=== PATIENT | male | born 1960 | race Caucasian/White ===

== ENCOUNTER 2018-08-11 03:37 | Inpatient (IN) | payer OTHER ==
[~2018-08-11] VITALS: Ht 182.9 cm; Wt 225.9 kg
--- NOTE | 2018-08-11 03:55 | NUR ---
BIB RA 39 FROM [facility], D/T C/O BILAT' TESTICULAR SWELLING/ PAIN 02/02 X 2 DAYS, DENIES ANY SOB, AOX4, VS STABLE, AFEBRILE AT THIS TIME, PLACED ON ER BED 15, DR REYNA AT BEDSIDE TO EVHUMA PT. AWAITING ORDERS.
--- NOTE | 2018-08-11 04:31 | NUR ---
US SCROTUM DONE AT BED SIDE, ASSISTANCE PROVIDED.
--- NOTE | 2018-08-11 04:35 | NUR ---
PT WITH HANNAH' ERICKA MINOO BANDGE DRESSINGS, OREDERED BY DR REYNA TO REMOVE , TO ASSESS WOUND, NEW KALEX WRAP APPLIED, MINOO BANDGE APPLIED.
[2018-08-11] MEDS ORDERED: ONDANSETRON 4 MG TAB.RAPDIS ONE (04:37)
[2018-08-11] MEDS ORDERED: oxyCODONE/APAP (5/325 MG) 1 UDTAB TABLET ONE (04:37)
[2018-08-11 04:53] LABS: BASOPHILS % (AUTO) 0.5 % (0.0-2.0); EOSINOPHILS % (AUTO) 2.2 % (0.0-6.0); HEMATOCRIT 38 % (39-51); HEMOGLOBIN 12.3 g/dL (13.5-17.5); LYMPHOCYTES % (AUTO) 16.1 % (20.0-44.0); MEAN CORPUSCULAR HGB CONC 32 g/dl (31.0-36.0); MEAN CORPUSCULAR VOLUME 89 fL (80-96); MONOCYTES # (AUTO) 0.6 /CMM (0.1-1.30); MONOCYTES % (AUTO) 9.7 % (2.0-12.0); NEUTROPHILS # (AUTO) 4.6 /CMM (1.8-8.9); NEUTROPHILS % (AUTO) 71.5 % (43.0-81.0); PLATELET COUNT (AUTO) 281 /CMM (150-450); RED BLOOD CELL COUNT(AUTO) 4.32 MIL/uL (4.5-6.0); WHITE BLOOD COUNT (AUTO) 6.5 K/uL (4.3-11.0)
[2018-08-11] MEDS ORDERED: oxyCODONE/APAP (5/325 MG) 1 UDTAB TABLET PO ONE (05:00)
[2018-08-11] MEDS ORDERED: ONDANSETRON 4 MG TAB.RAPDIS SL ONE (05:00)
[2018-08-11 05:03] LABS: CALCIUM, SERUM 8.4 mg/dL (8.5-10.1); POTASSIUM 4.6 mmol/L (3.5-5.1)
[2018-08-11 05:08] LABS: ALBUMIN 3.2 g/dL (3.4-5.0); BILIRUBIN,DIRECT 0.4 mg/dL (0.0-0.2); BILIRUBIN,TOTAL 1.5 mg/dL (0.2-1.0); TOTAL PROTEIN, SERUM 7.2 g/dL (6.4-8.2)
--- NOTE | 2018-08-11 05:45 | NUR ---
Dr. Quintero, Urologist paged.
--- NOTE | 2018-08-11 06:00 | NUR ---
[address]nd [address] Dr[address] Quintero paged.
--- NOTE | 2018-08-11 06:10 | NUR ---
Dr. Roca, urologist paged.
--- NOTE | 2018-08-11 06:14 | NUR ---
XR CHEST BEING DONE AT BED SIDE.
--- NOTE | 2018-08-11 06:15 | NUR ---
Dr. Roca, urologist on phone w/ Dr. Nguyen.
--- NOTE | 2018-08-11 06:19 | NUR ---
ADMIT MEDR 315-2 DX: EPIDIDYMITIS VS. TESTICULAR TORSION JADE DERAS
--- NOTE | 2018-08-11 06:20 | NUR ---
Awaiting authorization# for admission.
--- NOTE | 2018-08-11 06:27 | NUR ---
BRAEDEN WOODARD NP PAGED.
[2018-08-11] MEDS ORDERED: LEVOFLOXACIN 750 MG /D5W 150ML 150 ML IV ONE ×2 (06:30→06:42)
--- NOTE | 2018-08-11 06:58 | NUR ---
CALLED FOR REPORT, GIVEN TO CHARGE NURSE BOUBACAR, BED ASSIGNED 315-2, INSURANCE PENDING, AWAITING CLEARANCE TO ADMIT.
--- NOTE | 2018-08-11 07:23 | NUR ---
Faxed clinical info to [facility] .
--- NOTE | 2018-08-11 07:32 | NUR ---
ROBERTA RN GIVEN REPORT FOR DAWNA.
--- NOTE | 2018-08-11 07:43 | NUR ---
CALL FROM AMANDA WITH [place] INFO:ACCEPTED BY DR TREVINO,[phone], GOING TO [facility],TELE BED FOR CARDIOMYOPATHY,R/O TESTICULAR TORSION.
--- NOTE | 2018-08-11 07:45 | NUR ---
DR TREVINO CALLED AND SPOKE WITH DR SANCHEZ,RECOMMENDED TO KEEP PT HERE SINCE THEY HAVE NO UROLOGY. AMANDA/SERGIO BE CALLED
--- NOTE | 2018-08-11 07:57 | NUR ---
RECEIVED REPORT FROM RAPHAEL MUELLER FOR DAWNA. NOTED TESTICULAR SWELLING, PT IS AAOX4, NOT IN RESPIRATORY DISTRESS, V/S STABLE.
--- NOTE | 2018-08-11 08:01 | NUR ---
CALL BACK FROM MAANDA Lujan/ BLAIR INFO: GOING TO [facility] [address] [facility],[address],[place] [address],REPORT TO [phone], ARVIND LIM
--- NOTE | 2018-08-11 08:10 | NUR ---
REFUSED IN & OUT CATH,DR SANCHEZ AWARE
--- NOTE | 2018-08-11 08:23 | NUR ---
REFUSED TO GO TO [facility]. AND [facility] WHERE HE IS CAPITATED TO . AMANDA'S CONTACT INFO GIVEN REQUESTED BY PT.
--- NOTE | 2018-08-11 08:26 | NUR ---
PT STATES DOESNT WANT TO GET TRANSFER TO OTHER HOSPITAL, STORAGE BATTERY INSPECTOR AWARE.
--- NOTE | 2018-08-11 08:41 | NUR ---
DR. NINA UROLOGIST AT BEDSIDE FOR PT EVAL.
[2018-08-11] MEDS ORDERED: BLOO-668 IN (09:55)
[2018-08-11] MEDS ORDERED: FURO80TA85 PO (09:55)
[2018-08-11] MEDS ORDERED: INSU100V32 SQ (09:55)
[2018-08-11] MEDS ORDERED: RIVA10TA PO (09:55)
[2018-08-11] MEDS ORDERED: IBUP-1953 PO (09:55)
[2018-08-11] MEDS ORDERED: AMIN30LI2 PO (09:55)
[2018-08-11] MEDS ORDERED: SIMV20TA6 PO (09:55)
[2018-08-11] MEDS ORDERED: LACT10SO PO (09:55)
[2018-08-11] MEDS ORDERED: INSU100V27 SQ (09:55)
[2018-08-11] MEDS ORDERED: POTA20PA34 PO (09:55)
[2018-08-11] MEDS ORDERED: METO25TA20 PO (09:55)
[2018-08-11] MEDS ORDERED: ASPI-1169 PO (09:55)
[2018-08-11] MEDS ORDERED: DIGO250T PO (09:55)
[2018-08-11] MEDS ORDERED: ZINC220C8 PO (09:55)
[2018-08-11] MEDS ORDERED: ASCO500T9 PO (09:55)
[2018-08-11] MEDS ORDERED: LISI40TA4 PO (09:55)
--- NOTE | 2018-08-11 09:58 | NUR ---
URINE SPECIMEN COLLECTED AND SENT TO LAB.
[2018-08-11 10:05] LABS: APPEARANCE,URINE Clear (CLEAR); BILIRUBIN,URINE SMALL (NEGATIVE); BLOOD, URINE Negative Ery/uL (NEGATIVE); COLOR,URINE Yellow (YELLOW); KETONES,URINE Trace (NEGATIVE); LEUKOCYTE ESTERASE ,URINE Negative (NEGATIVE); NITRITE, URINE Negative (NEGATIVE); PROTEIN,URINE 100 mg/dl (NEGATIVE); UGLUCOSE Negative (NEGATIVE); UROBILINOGEN,URINE 0.2 EU/dL (0.2)
--- NOTE | 2018-08-11 10:11 | NUR ---
REPORT GIVEN TO RAPHAEL SAMUELS FOR DAWNA.
[2018-08-11 10:25] LABS: BACTERIA,URINE Rare /HPF (None Seen); RBC,URINE NONE SEEN /HPF (0-2); SQUAMOUS EPITHELIAL CELL,UR Few /HPF (None Seen); WBC,URINE NONE SEEN /HPF (0-3)
[2018-08-11] MEDS ORDERED: ONDANSETRON HCL/PF 4 MG/2 ML VIAL IVP PRN (11:00)
[2018-08-11] MEDS ORDERED: HYDROCODONE/APAP 5/325MG 1 EACH TABLET PO PRN (11:00)
[2018-08-11] MEDS ORDERED: Z GUARD REMEDY 2 OZ OINT TP PRN (11:00)
[2018-08-11] MEDS ORDERED: ACETAMINOPHEN 325 MG TABLET PO PRN (11:00)
[2018-08-11] MEDS ORDERED: IBUPROFEN 400 MG TABLET PO PRN (11:00)
[2018-08-11] MEDS ORDERED: ZOLPIDEM TARTRATE 5 MG TABLET PO PRN (11:00)
[2018-08-11] MEDS ORDERED: MAG HYDROX/AL HYDROX/SIMETH 30 ML UDC PO PRN (11:00)
[2018-08-11] MEDS ORDERED: MAGNESIUM HYDROXIDE 30 ML UDC PO PRN (11:00)
[2018-08-11] MEDS ORDERED: FUROSEMIDE 40 MG/4 ML VIAL IV SCH (11:00)
[2018-08-11] MEDS ORDERED: MULT1TAB73 PO (11:33)
[2018-08-11] MEDS: BLOOD SUGAR DIAGNOSTIC 1 EACH STRIP IN SCH ×4 (11:38→21:20)
[2018-08-11] MEDS: FUROSEMIDE 100 MG/10 ML VIAL IV SCH ×2 (11:43→17:34)
[2018-08-11] MEDS: POTASSIUM CHLORIDE 20 MEQ POWDER PACKET PO SCH (11:43)
--- NOTE | 2018-08-11 12:03 | NUR ---
MS RN ADMITTING NOTES ADMITTED PT TO UNIT VIA GURNEY ACCOMPANIED BY Andrea NURSE ROBERTA RICCI AT 1045. A/ O X 4. ABLE TO MAKE NEEDS KNOWN. PT WITH DIAGNOSIS OF EPIDIDYMITIS WITH SCROTAL SWELLING. PT ORIENTED TO UNIT AND ROOM. V/S TAKEN AND RECORDED. ON ROOM AIR TOLERATING WELL WITH NO SOB NOTED. BODY ASSESSMENT DONE. ABDOMEN SOFT AND NON-TENDER AND NON DISTENDED WITH POSITIVE BOWEL SOUNDS. LUNGS CLEAR BILATERALLY ON AUSCULTATION. PHOTOS OF SKIN CONDITION TAKEN AND FILED ON CHART. PT WITH HEPLOCK ON RAC G#20 INTACT AND PATENT. SAFET MEASURES INITIATED. BED PLACED ON LOW LOCKED POSITION WITH SIDE-RAILS UP X2. CALL LIGHT WITHIN EASY REACH OF PT. WILL CONTINUE TO MONITOR AND ASSESS PT.
[2018-08-11] MEDS: DIGOXIN 0.25 MG TABLET PO SCH (15:29)
[2018-08-11 16:00] VITALS: BP 110/73
[2018-08-11] MEDS ORDERED: DEXTROSE 50%-WATER 50 ML DISP.SYRIN IV PRN (17:30)
[2018-08-11] MEDS: INS LISP PROT/INS LISPRO 75/25 100 UNIT/ML VIAL SQ SCH (17:33)
[2018-08-11] MEDS: LISINOPRIL (20MG) 20 MG TABLET PO SCH (17:34)
--- NOTE | 2018-08-11 17:41 | NUR ---
RN NOTES PT NOTED WITH B/S OF 185MGDL. STANDING ORDER OF HUMALOG MIX 75/25 OF 20 UNITS WITHDRAWS FROM VIAL BUT PT JUST ONE 10 UNITS TO BE ADMINISTERED AND STATED THAT HE KNOWS HIS DIABETIC STATUS WELL AND IF HE WILL GET HIS HUMALOG MIX OF 20 UNITS, IT WILL DROP HIS SUGAR QUICKLY AND HE DIDN'T WANT THAT TO HAPPEN. HE ALSO REFUSED HIS HUMULIN R COVERAGE. WILL CONTINUE TO MONITOR.
--- NOTE | 2018-08-11 18:57 | NUR ---
RN NOTES RN STEVIE INSERTED MIDLINE G#18 ON PT'S ALIDA AND SECURED WITH TAPE.
--- NOTE | 2018-08-11 19:01 | NUR ---
MS RN CLOSING NOTES PT IN BED AWAKE AND RESTING AT MODERATE HIGH BACKREST POSITION. A/O X4. ABLE TO MAKE NEEDS KNOWN. ALL NEEDS AND CARE ATTENDED WELL. PT PLACED ON BARIMAX AIR MATRESS THIS AFTERNOON. ON ROOM AIR, TOLERATING WELL WITH NO ACUTE DISTRESS NOTED THROUGHOUT THE DAY. MIDLINE ON SHER G#18 AND PIV ON RAC G#20 BOTH INTACT AND PATENT. SAFETY MEASURES IN PLACE. BED IN LOW LOCKED POSITION WITH SR UP X2. CALL LIGHT WITHIN REACH. WILL ENDORSED TO BOATS RENTER NURSE FOR DAWNA.
--- NOTE | 2018-08-11 19:05 | NUR ---
RN MS OPENING NOTES RECEIVED PATIENT AWAKE ALERT AND ORIENTED X4, RESPIRATIONS EVEN AND UNLABORED WITH EQUAL RISE AND FALL OF CHEST, DENIES ANY PAIN OR DISCOMFORT AT THIS TIME, ON BARIATRIC BED, URINAL AT BEDSIDE AND OFFERED, FLUIDS ICE CHIPS OFFERED, LEFT UPPER MID LINE INTACT AND PATENT, DRESSING CLEAN, DRY AND INTACT, NO REDNESS, NO INFILTRATION , RIGHT AC #20 G IV INTACT, NO REDNESS, NO INFILTRATION , ORIENTED TO STAFF AND CALL LIGHT, SAFETY PRECAUTIONS IN PLACE, CALL LIGHT KEPT WITHIN REACH, ALL NEEDS ATTENDED AT THIS TIME WILL CONTINUE TO MONITOR.,DRESSINGS TO BLE REMAIN CLEAN DRY AND INTACT, OFFERED OFFLOADED OF BLE REFUSED PILLOWS AT THIS TIME.
[2018-08-11 20:00] VITALS: BP 108/66
[2018-08-11] MEDS: METOPROLOL TARTRATE 50 MG TABLET PO SCH (21:00)
[2018-08-11] MEDS: RIVAROXABAN 10 MG TABLET PO SCH (21:24)
[2018-08-11] MEDS: SIMVASTATIN 20 MG TABLET PO SCH (21:24)
[2018-08-11] MEDS: oxyCODONE/APAP (5/325 MG) 1 UDTAB TABLET PO PRN (21:52)
--- NOTE | 2018-08-11 21:52 | NUR ---
RN MS NOTES PATIENT COMPLAIN OF PAIN TO LEFT AND RIGHT LEG, REQUESTING FOR PERCOCET PAIN 9/10 ACHING VS WNL 108/66,101,20,92% RA. PRN PERCOCET 5/325MG GIVEN ORDERED WILL CONTINUE TO MONITOR FOR EFFECTIVENESS.
--- NOTE | 2018-08-11 22:00 | NUR ---
rn ms notes patient blood sugar 161, patient refused insulin explained risks and benefits. verbalizes he understands hes on a sliding scale refused x3. states " i didnt eat much today i dont want to crash and than juice and all that."
--- NOTE | 2018-08-12 02:21 | NUR ---
rn ms notes per patient request wants blood sugar checked 196 refused insulin made patient aware on sliding scale
[2018-08-12] MEDS: LEVOFLOXACIN 500 MG /D5W 100ML 500 MG in PREMIX 1 EA IV SCH (06:01)
[2018-08-12] MEDS: BLOOD SUGAR DIAGNOSTIC 1 EACH STRIP IN SCH ×6 (06:22→21:22)
[2018-08-12] MEDS: INSULIN REGULAR, HUMAN 100 UNIT/ML 3 ML VIAL SQ PRN ×4 (06:35→23:31)
--- NOTE | 2018-08-12 06:41 | NUR ---
RAPHAEL MS NOTES PATIENT IN BED AWAKE ALERT AND ORIENTED X 4. RESPIRATIONS EVEN AND UNLABORED WITH EQUAL RISE AND FALL OF CHEST, DENIES ANY PAIN OR DISCOMFORT AT THIS TIME, URINAL OFFERED, IV SITE TO RIGHT AC #20 SL, LEFT UPPER MIDLINE#18 G INTACT AND PATENT, DRESSING CLEAN DRY AND INTACT, LINENS AND REPOSITIONING OFFERED, DRESSING AND MINOO BANDAGES TO BLE REMAIN CLEAN AND INTACT, HEELS OFFLOADED, ALL NEEDS ATTENDED NO CHANGES THROUGHOUT SHIFT, CALL LIGHT KEPT WITHIN REACH, WILL CONTINUE TO MONITOR AND ENDORSE TO NEXT SHIFT. Addendum: 08/12/18 at 0655 by SHADIA BRANNON RN RAPHAEL CLOSING NOTES
[2018-08-12 07:10] LABS: BASOPHILS # (AUTO) 0.1 /CMM (0.0-0.2); BASOPHILS % (AUTO) 0.9 % (0.0-2.0); EOSINOPHILS % (AUTO) 1.3 % (0.0-6.0); HEMATOCRIT 39 % (39-51); HEMOGLOBIN 12.2 g/dL (13.5-17.5); LYMPHOCYTES % (AUTO) 13.3 % (20.0-44.0); MEAN CORPUSCULAR HGB CONC 32 g/dl (31.0-36.0); MEAN CORPUSCULAR VOLUME 90 fL (80-96); MONOCYTES # (AUTO) 0.8 /CMM (0.1-1.30); MONOCYTES % (AUTO) 10.7 % (2.0-12.0); NEUTROPHILS # (AUTO) 5.4 /CMM (1.8-8.9); NEUTROPHILS % (AUTO) 73.8 % (43.0-81.0); PLATELET COUNT (AUTO) 267 /CMM (150-450); RED BLOOD CELL COUNT(AUTO) 4.29 MIL/uL (4.5-6.0); WHITE BLOOD COUNT (AUTO) 7.4 K/uL (4.3-11.0)
[2018-08-12 07:28] LABS: ALBUMIN 3.1 g/dL (3.4-5.0); BILIRUBIN,TOTAL 1.4 mg/dL (0.2-1.0); CALCIUM, SERUM 8.1 mg/dL (8.5-10.1); CREATININE 1.5 mg/dL (0.6-1.3); MAGNESIUM 1.9 mg/dL (1.8-2.4); PHOSPHORUS 4.7 mg/dL (2.5-4.9); POTASSIUM 5.2 mmol/L (3.5-5.1)
--- NOTE | 2018-08-12 07:33 | NUR ---
MS RN OPENING NOTE PATIENT IN BED AWAKE ALERT AND ORIENTED X 4. RESPIRATIONS EVEN AND UNLABORED. DENIES ANY PAIN OR DISCOMFORT AT THIS TIME. PIV SITE TO RIGHT AC #20 SL AND LEFT UPPER MIDLINE#18 G, BOTH INTACT AND PATENT. CALL LIGHT KEPT WITHIN REACH. SAFETY PRECAUTIONS; BED IN LOW, LOCKED POSITION. WILL CONTINUE TO MONITOR.
[2018-08-12 08:00] VITALS: BP 120/67
[2018-08-12] MEDS: POTASSIUM CHLORIDE 20 MEQ POWDER PACKET PO SCH (09:19)
[2018-08-12] MEDS: LISINOPRIL (20MG) 20 MG TABLET PO SCH (09:19)
[2018-08-12] MEDS: ASCORBIC ACID 500 MG TABLET PO SCH (09:20)
[2018-08-12] MEDS: ZINC SULFATE 220 MG CAPSULE PO SCH (09:20)
[2018-08-12] MEDS: INS LISP PROT/INS LISPRO 75/25 100 UNIT/ML VIAL SQ SCH ×2 (09:20→17:49)
[2018-08-12] MEDS: METOPROLOL TARTRATE 50 MG TABLET PO SCH ×2 (09:21→20:53)
[2018-08-12] MEDS: FUROSEMIDE 100 MG/10 ML VIAL IV SCH ×2 (09:24→17:37)
[2018-08-12] MEDS: oxyCODONE/APAP (5/325 MG) 1 UDTAB TABLET PO PRN ×3 (09:47→23:18)
--- NOTE | 2018-08-12 09:48 | NUR ---
MS RN NOTE PT REQUESTED FOR PERCOCET DUE TO BILATERAL HEEL PAIN, PAIN SCALE OF 8 OUT OF 10. PERCOCET 5/325 MG GIVEN PRN ORDERED. WILL CONTINUE TO MONITOR.
--- NOTE | 2018-08-12 11:45 | NUR ---
MS RN NOTE FOLLOWED UP WITH PHYSICAL THERAPY SPOKE TO JAJA, REGARDING BED TRAPEZE. STILL AWAITING FOR COMPANY TO INSTALL IT ON THE PT'S BED.
[2018-08-12] MEDS: DIGOXIN 0.25 MG TABLET PO SCH (13:05)
--- NOTE | 2018-08-12 14:26 | NUR ---
RN NOTES PATIENT FOR BILATERAL WOUND DEBRIDEMENT OF LOWER EXTREMITIES TOMORROW. DR BUTTERFIELD EXPLAINED PROCEDURE TO PT AND VERBALIZED UNDERSTANDING. PT SIGNED CONSENT AND FILED ON CHART. WILL CONTINUE TO MONITOR
[2018-08-12 16:00] VITALS: BP 103/68
--- NOTE | 2018-08-12 17:38 | NUR ---
RN NOTES SPOKE TO THOMAS FROM [facility], STATED THEY WILL DELIVER BED TRAPEZE TONIGHT. WILL ENDORSE TO INCOMING NIGHT NURSE.
--- NOTE | 2018-08-12 18:55 | NUR ---
MS RN CLOSING NOTES PT IN BED AWAKE AND LYING @ MODERATE HIGH BACKREST POSITION. A/O X4. ABLE TO MAKE NEEDS KNOWN. DIABETIC STATUS CLOSELY MONITORED. ON 02 VIA N/C @ 2LPM, TOLERATING WELL WITH NO ACUTE DISTRESS NOTED THROUGHOUT THE DAY. MIDLINE ON ALIDA G#18 INTACT AND PATENT. ALL NEEDS AND CARE ATTENDED WELL. ALL SAFETY MEASURES IN PLACE. BED IN LOW LOCKED POSITION WITH SR UP X2. CALL LIGHT WITHIN REACH. WILL ENDORSED TO PARTITION ASSEMBLER NURSE FOR DAWNA.
--- NOTE | 2018-08-12 19:35 | NUR ---
MS RN OPENING NOTES: RECEIVED PT ON 2LPM VIA NC AND IS TOLERATING WELL. PT HAS R AC #20G AND IS PATENT AND INTACT. CURRENTLY H/L. PT ALSO HAS L UPPER ARM MIDLINE NAD IS PATENT AND INTACT. CURRENTLY H/L WELL. AWAITING FOR TRAPEZE TO BE DELIVERED IT HAS BEEN CALLED FROM [facility]. BED KEPT IN LOW, LOCKED POSITION, AND SIDE RAILS X 2UP. WILL CONTINUE TO MONITOR PT.
--- NOTE | 2018-08-12 19:40 | NUR ---
RN NOTES BED TRAPEZE NOT DELIVERED YET AT THIS TIME. ENDORSED TO PUBLIC HEALTH DOCTOR NURSE/ ARCHIE.
[2018-08-12 20:00] VITALS: BP 95/66
[2018-08-12] MEDS: SIMVASTATIN 20 MG TABLET PO SCH (21:22)
[2018-08-12] MEDS: RIVAROXABAN 10 MG TABLET PO SCH (21:41)
[2018-08-13] MEDS: LEVOFLOXACIN 500 MG /D5W 100ML 500 MG in PREMIX 1 EA IV SCH (06:01)
[2018-08-13] MEDS: BLOOD SUGAR DIAGNOSTIC 1 EACH STRIP IN SCH ×6 (06:48→21:07)
[2018-08-13] MEDS: INSULIN REGULAR, HUMAN 100 UNIT/ML 3 ML VIAL SQ PRN ×4 (06:49→21:17)
--- NOTE | 2018-08-13 07:49 | NUR ---
MS RN CLOSING NOTES: ALL NEEDS WERE ATTENDED AND ANTICIPATE FOR. PT KEPT CLEAN, DRY, AND COMFORTABLE. PT ON 2LPM VIA NC AND IS TOLERATING WELL. PT HAS ALIDA MIDLINE AND IS BEING INFUSED WITH LEVAQUIN AT 66.67ML/HR. CALLED PHYSICAL THERAPY TO FOLLOW UP ON TRAPEZE. NO CRESTER. ENDORSED TO AM NURSE TO FOLLOW UP. WOUND TX PERFORMED ORDERED. BED KEPT IN LOW, LOCKED POSITION, AND SIDE RAILS X 2UP. BLOOD SUGAR THIS AM WAS 209. 4 UNITS OF INSULIN WAS ADMINISTERED. ENDORSED TO AM NURSE FOR DAWNA.
[2018-08-13 08:00] VITALS: BP 132/79
[2018-08-13 09:02] LABS: CALCIUM, SERUM 7.9 mg/dL (8.5-10.1); CREATININE 2.4 mg/dL (0.6-1.3); POTASSIUM 5.9 mmol/L (3.5-5.1)
[2018-08-13] MEDS: ASCORBIC ACID 500 MG TABLET PO SCH (09:53)
[2018-08-13] MEDS: FUROSEMIDE 100 MG/10 ML VIAL IV SCH ×2 (09:54→17:21)
[2018-08-13] MEDS: METOPROLOL TARTRATE 50 MG TABLET PO SCH ×2 (09:54→21:06)
[2018-08-13] MEDS: ZINC SULFATE 220 MG CAPSULE PO SCH (09:54)
--- NOTE | 2018-08-13 10:11 | NUR ---
WOUND CARE CONSULT: PT PRESENTS WITH LEGS WRAPPED (DRESSINGS DRY AND INTACT). Z GUARD IN USE FOR SKIN FOLDS. DEFER TO DP FOR LOWER EXTREMITIES. ALL SKIN PROTECTION MEASURES DISCUSSED WITH NURSING STAFF. PT ON [employer] ETS AIR BED. WILL SEE PRN. EDMONDSON IN AGREEMENT WITH PLAN OF CARE. Addendum: 08/13/18 at 1020 by GRETA RIOS WNDNU PT STATES NEEDS BARIATRIC BED WITHOUT AIR MATTRESS. DISCUSSED WITH NURSING STAFF AND [facility]. CURRENT MARYJANE SCORE IS 15.
[2018-08-13] MEDS: INS LISP PROT/INS LISPRO 75/25 100 UNIT/ML VIAL SQ SCH ×2 (10:30→17:26)
[2018-08-13] MEDS ORDERED: SODIUM POLYSTYRENE SULFONATE 15 G/60 ML BOTTLE PO ONE (11:30)
[2018-08-13] MEDS: DIGOXIN 0.25 MG TABLET PO SCH (12:50)
[2018-08-13 16:00] VITALS: BP 129/72
[2018-08-13 16:27] LABS: CALCIUM, SERUM 7.7 mg/dL (8.5-10.1); CREATININE 2.3 mg/dL (0.6-1.3); POTASSIUM 5.5 mmol/L (3.5-5.1)
[2018-08-13 16:34] LABS: DIGOXIN 0.85 ng/mL (0.90-2.00)
--- NOTE | 2018-08-13 19:25 | NUR ---
MS RN OPENING NOTES: RECEIVED PT ON 4LPM VIA NC AND IS TOLERATING WELL. PT ASLEEP AT THIS TIME. PT HAS ALIDA MIDLINE AND IS PATENT AND INTACT. CURRENTLY H/L. NO SOB NOTED. NO S/S OF DISTRESS. PT ON SPECIALTY BED WITH TRAPEZE NOTED. BED KEPT IN LOW, LOCKED POSITION, AND SIDE RAILS X 2UP. WILL CONTINUE TO MONITOR PT.
[2018-08-13 20:00] VITALS: BP 113/65
[2018-08-13] MEDS: SIMVASTATIN 20 MG TABLET PO SCH (21:06)
[2018-08-13] MEDS: RIVAROXABAN 10 MG TABLET PO SCH (21:07)
--- NOTE | 2018-08-13 21:17 | NUR ---
RN NOTES: BLOOD SUGAR THIS PM WAS 181. 3 UNITS OF INSULIN WAS ADMINISTERED.
[2018-08-14] MEDS: LEVOFLOXACIN (500MG) 500 MG TABLET PO SCH (06:14)
[2018-08-14] MEDS: BLOOD SUGAR DIAGNOSTIC 1 EACH STRIP IN SCH ×6 (06:34→21:14)
[2018-08-14] MEDS: INSULIN REGULAR, HUMAN 100 UNIT/ML 3 ML VIAL SQ PRN ×3 (06:51→21:24)
--- NOTE | 2018-08-14 07:30 | NUR ---
ms rn received on bed,awake,alert,oriented x4,not in any form of distress, respirations even and unlabored,no sob noted, lungs are clear,abdomen soft,positive bowel sounds, denies pain at this time, will monitor patient's condition,on big boy bed, bilateral foot wounds,swollen scrotal area.
--- NOTE | 2018-08-14 07:45 | NUR ---
MS RN CLOSING NOTES: ALL NEEDS WERE ATTENDED AND ANTICIPATED FOR. PT ON ROOM AIR AND TOLERATING WELL. PT ON SPECIALTY BED WITH TRAPEZE. ALIDA MIDLINE IS PATENT AND INTACT. CURRENTLY H/L. BLOOD SUGAR THIS AM WAS 140 AND 2 UNITS WAS ADMINISTERED. BED KEPT IN LOW, LOCKED POSITION, AND SIDE RAILS X 2UP. ENDORSED TO AM NURSE FOR DAWNA.
[2018-08-14 08:00] VITALS: BP 122/64
[2018-08-14 08:55] LABS: BASOPHILS # (AUTO) 0.1 /CMM (0.0-0.2); EOSINOPHILS % (AUTO) 2.4 % (0.0-6.0); HEMATOCRIT 37 % (39-51); HEMOGLOBIN 11.8 g/dL (13.5-17.5); LYMPHOCYTES # (AUTO) 1.2 /CMM (0.8-4.8); LYMPHOCYTES % (AUTO) 15.5 % (20.0-44.0); MEAN CORPUSCULAR HGB CONC 32 g/dl (31.0-36.0); MEAN CORPUSCULAR VOLUME 90 fL (80-96); MONOCYTES # (AUTO) 0.7 /CMM (0.1-1.30); MONOCYTES % (AUTO) 9.9 % (2.0-12.0); NEUTROPHILS # (AUTO) 5.4 /CMM (1.8-8.9); NEUTROPHILS % (AUTO) 71.2 % (43.0-81.0); PLATELET COUNT (AUTO) 290 /CMM (150-450); RED BLOOD CELL COUNT(AUTO) 4.13 MIL/uL (4.5-6.0); WHITE BLOOD COUNT (AUTO) 7.6 K/uL (4.3-11.0)
[2018-08-14] MEDS: INS LISP PROT/INS LISPRO 75/25 100 UNIT/ML VIAL SQ SCH ×2 (09:00→17:00)
--- NOTE | 2018-08-14 09:00 | NUR ---
ms johnson breakfast served,due meds given,tolerated well.
[2018-08-14 09:13] LABS: ALBUMIN 2.8 g/dL (3.4-5.0); BILIRUBIN,TOTAL 1.2 mg/dL (0.2-1.0); CALCIUM, SERUM 7.7 mg/dL (8.5-10.1); CREATININE 1.8 mg/dL (0.6-1.3); PHOSPHORUS 3.9 mg/dL (2.5-4.9); POTASSIUM 5.3 mmol/L (3.5-5.1); TOTAL PROTEIN, SERUM 6.6 g/dL (6.4-8.2)
--- NOTE | 2018-08-14 09:30 | NUR ---
ms johnson in-734-lrcinch humalog insulin,no s/s of hyperglycemia.
[2018-08-14] MEDS: ASCORBIC ACID 500 MG TABLET PO SCH (09:52)
[2018-08-14] MEDS: ZINC SULFATE 220 MG CAPSULE PO SCH (09:52)
[2018-08-14] MEDS: FUROSEMIDE 100 MG/10 ML VIAL IV SCH ×2 (09:52→17:32)
[2018-08-14] MEDS: METOPROLOL TARTRATE 50 MG TABLET PO SCH ×2 (09:54→20:37)
--- NOTE | 2018-08-14 12:00 | NUR ---
ms johnsno bs - 170-refused insulin coverage, no s/s of hyperglycemia.
[2018-08-14] MEDS: DIGOXIN 0.25 MG TABLET PO SCH (13:00)
[2018-08-14 16:00] VITALS: BP 118/76
--- NOTE | 2018-08-14 17:43 | NUR ---
ms rn bs - 190-still refusing humalog bid, only 3 units regular insulin given per pt request.
--- NOTE | 2018-08-14 17:44 | NUR ---
ms rn on bed, no distress noted,all needs attended.
--- NOTE | 2018-08-14 18:00 | NUR ---
MS RN REFUSED TO CHANGE BILATERAL FOOT DRESSING.
--- NOTE | 2018-08-14 18:30 | NUR ---
MS RN PATIENT REFUSING BIG BOY BED, WANTS TO TRANSFER TO REGULAR BED. CN CALLED JOVANY WOUND NURSE, OK TO TRANSFER.
--- NOTE | 2018-08-14 19:41 | NUR ---
MS/RN OPENING NOTES PATIENT IN BED, AWAKE, ALERT, JUST HAD CHANGE IN BED PREFERED TO BE ON REGULAR BED INSTEAD OF PRESCRIBED BIG BOY BED, PATIENT VERBALIZE NEEDS AND ASSIST FOR REPOSITION FOR COMFORT, ELEVATED THE PROSTATE AND KEEP THIN LINEN IN BETWEEN AND COVERED, A,O X4 USES URINAL AND CALL FOR ASSISTANCE , WITH ALIDA MIDLINE PATENT WILL CONTINUE TO PROVIDE CARE. INFORMED ABOUT PLAN OF CARE AND VERBALIZED UNDERSTANDING.
[2018-08-14 20:19] VITALS: BP 142/83
[2018-08-14] MEDS: RIVAROXABAN 10 MG TABLET PO SCH (21:14)
[2018-08-14] MEDS: SIMVASTATIN 20 MG TABLET PO SCH (21:14)
--- NOTE | 2018-08-15 05:28 | NUR ---
MS/RN NOTES JOHN REPORTED LACK OF APPETITE FOR THE PAST FEW DAYS AND NOT HAD BM FOR FEW DAYS, CONCERN WIT HEALTH ISSUES AND PLACEMENT UPON DC, TO COMMUNICATE FOR DC SIEVE REPAIRER FOR PLACEMEMENT FOR SAFETY AND PATIENT PREFERENCE.
[2018-08-15] MEDS: INSULIN REGULAR, HUMAN 100 UNIT/ML 3 ML VIAL SQ PRN ×3 (06:53→12:24)
[2018-08-15] MEDS: LEVOFLOXACIN (500MG) 500 MG TABLET PO SCH (07:12)
--- NOTE | 2018-08-15 07:30 | NUR ---
MS RN OPENING NOTES PATIENT RECEIVED AWAKE AND RESTING IN BED. PT WITH O2 VIA NC AT . PT DENIES PAIN AT THIS TIME. PT WITH ALIDA MIDLINE. PT BILATERAL LOWER EXTREMITIES DRESSINGS DRY AND INTACT. SCROTAL SWELLING NOTED. PT PT ABLE TO VERBALIZE NEEDS. BED IN LOWEST, LOCKED POSITION WITH SR X2.
[2018-08-15 07:35] LABS: CALCIUM, SERUM 8.2 mg/dL (8.5-10.1); CREATININE 1.2 mg/dL (0.6-1.3); MAGNESIUM 1.9 mg/dL (1.8-2.4); PHOSPHORUS 3.3 mg/dL (2.5-4.9); POTASSIUM 4.6 mmol/L (3.5-5.1)
[2018-08-15 07:40] LABS: BASOPHILS # (AUTO) 0.1 /CMM (0.0-0.2); BASOPHILS % (AUTO) 1.5 % (0.0-2.0); EOSINOPHILS % (AUTO) 2.4 % (0.0-6.0); HEMATOCRIT 38 % (39-51); HEMOGLOBIN 12.3 g/dL (13.5-17.5); LYMPHOCYTES # (AUTO) 1.1 /CMM (0.8-4.8); MEAN CORPUSCULAR HGB CONC 33 g/dl (31.0-36.0); MEAN CORPUSCULAR VOLUME 88 fL (80-96); MONOCYTES # (AUTO) 0.9 /CMM (0.1-1.30); MONOCYTES % (AUTO) 11.9 % (2.0-12.0); NEUTROPHILS % (AUTO) 69.2 % (43.0-81.0); PLATELET COUNT (AUTO) 301 /CMM (150-450); RED BLOOD CELL COUNT(AUTO) 4.32 MIL/uL (4.5-6.0); WHITE BLOOD COUNT (AUTO) 7.2 K/uL (4.3-11.0)
[2018-08-15] MEDS: BLOOD SUGAR DIAGNOSTIC 1 EACH STRIP IN SCH ×3 (07:45→12:01)
--- NOTE | 2018-08-15 07:50 | NUR ---
MS/RN NOTES PATIENT RESPIRATIONS EVEN AND UNLABORED, SKIN WARM TO TOUCH. ABLEO VERBALIZE NEEDS, ENDORSE TO AM RN FOR DAWNA.
[2018-08-15 08:00] VITALS: BP_SYST 121; BP_SYST 123; BP_DIAS 62; BP_DIAS 76
--- NOTE | 2018-08-15 08:21 | NUR ---
MS RN NOTES SEEN AND EVALUATED BY DR Colby HILL. SPOKE TO PT REGARDING PLAN OF DISCHARGE AND TO CONTINUE WITH ORAL ANTIBIOTICS WHEN PT TRANSFERS.
[2018-08-15] MEDS ORDERED: LEVO500T2 PO (08:25)
[2018-08-15] MEDS: FUROSEMIDE 100 MG/10 ML VIAL IV SCH (08:56)
[2018-08-15] MEDS: ASCORBIC ACID 500 MG TABLET PO SCH (08:56)
[2018-08-15] MEDS: ZINC SULFATE 220 MG CAPSULE PO SCH (08:57)
[2018-08-15] MEDS: METOPROLOL TARTRATE 50 MG TABLET PO SCH (08:58)
[2018-08-15] MEDS: INS LISP PROT/INS LISPRO 75/25 100 UNIT/ML VIAL SQ SCH (09:18)
[2018-08-15 11:10] LABS: *SPE A/G RATIO 0.9 (0.7-1.7); *SPE ALBUMIN 2.9 g/dL (2.9-4.4); *SPE ALPHA-1-GLOBULIN 0.3 g/dL (0.0-0.4); *SPE ALPHA-2-GLOBULIN 0.7 g/dL (0.4-1.0); *SPE BETA GLOBULIN 1.1 g/dL (0.7-1.3); *SPE GLOBULIN, TOTAL 3.4 g/dL (2.2-3.9); *SPE M-SPIKE Not Observed g/dL (Not Observed); *SPEGAMMA GLOBULIN 1.3 g/dL (0.4-1.8)
--- NOTE | 2018-08-15 11:58 | NUR ---
MSRN. PT REPORTING CONSTIPATION FOR MULTIPLE DAYS WITHOUT RESPONSE TO CURRENT PRN INTERVENTIONS. MD MARQUES CONTACTED AND REQUESTING FLEET ENEMA, ORDER PLACED WILL ADMIN.
[2018-08-15] MEDS ORDERED: NA PHOS,M-B/NA PHOS,DI-BA 1 EA ENEMA RC PRN (12:00)
[2018-08-15] MEDS: DIGOXIN 0.25 MG TABLET PO SCH (12:13)
[2018-08-15 13:11] LABS: PTH, INTACT 49 pg/mL (15-65)
[2018-08-15 16:00] VITALS: BP 118/76
--- NOTE | 2018-08-15 17:22 | NUR ---
MSRN. PT PREPARED FOR D/C PER MD MARQUES. PT TOLERATING ROOM AIR WITHOUT DISTRESS. PT DENIES PAIN. MIDLINE REMOVED FROM L UA INTACT, COMPRESSION BANDAGED APPLIED WITH INSTRUCTIONS ON WHEN TO REMOVE. PT HAS REFUSED SKIN ASSESSMENTX2 PHOTOS R/T TO PAIN AND EXHAUSTION MOVING. PT WOUND CARE COMPLETED AND DRESSINGS CLEAN, DRY AND INTACT. PT BRIEFED ON SOH D/C PACKET, MEDICATIONS AND POC, PT VERBALIZING RESOURCES, UNDERSTANDING AND INTENT TO COMPLY WITH POC. PT WITH ALL BELONGINGS AND DOCUMENT SIGNED. PT ENDORSED TO RAPHAEL MATHIAS AT [facility], CURRENT HEALTH STATUS AND NEEDS DISCUSSED. PT LEFT IN BARIATRIC WHEELCHAIR AT PT PREFERENCE. ALL DAY NURSE DUTIES ATTENDED TO AND PT LEFT WITHOUT CONCERN OR COMPLAINT AND GRATEFUL FOR CARE.
== END 2018-08-15 16:22 | DRG 717 ==
LOC: ER 03:42 → MED 09:55
PROVIDERS: ADMIT Internal Medicine; ATTEND Student in an Organized Health Care Education/Training Program
PROC: 05H633Z Insertion of Infusion Device into Left Subclavian Vein, Percutaneous Approach (ICD-10-PCS; 2018-08-11)
PROC: 0JBR0ZZ Excision of Left Foot Subcutaneous Tissue and Fascia, Open Approach (ICD-10-PCS; principal; 2018-08-13)
PROC: 0JBQ0ZZ Excision of Right Foot Subcutaneous Tissue and Fascia, Open Approach (ICD-10-PCS; principal; 2018-08-13)
DX: N45.1 Epididymitis (principal); E43 Unspecified severe protein-calorie malnutrition; N17.0 Acute kidney failure with tubular necrosis; D68.59 Other primary thrombophilia; Z68.44 Body mass index [BMI] 60.0-69.9, adult; L97.429 Non-pressure chronic ulcer of left heel and midfoot with unspecified severity; L97.419 Non-pressure chronic ulcer of right heel and midfoot with unspecified severity; E66.01 Morbid (severe) obesity due to excess calories; E11.621 Type 2 diabetes mellitus with foot ulcer; D63.8 Anemia in other chronic diseases classified elsewhere; E11.42 Type 2 diabetes mellitus with diabetic polyneuropathy; E78.5 Hyperlipidemia, unspecified; E87.5 Hyperkalemia; I48.91 Unspecified atrial fibrillation; I50.9 Heart failure, unspecified; I25.10 Atherosclerotic heart disease of native coronary artery without angina pectoris; I87.2 Venous insufficiency (chronic) (peripheral); N13.9 Obstructive and reflux uropathy, unspecified; Z79.4 Long term (current) use of insulin; I11.0 Hypertensive heart disease with heart failure
CPT/HCPCS: 36415; 36569; 71045-TC; 76770-TC; 76870-TC; 80048-TC; 80053-TC; 80061-TC; 80076-TC; 80162-TC; 81000-TC; 82550-TC; 82962-TC; 83605-TC; 83735-TC; 83970; 84100-TC; 84155; 84165; 85025-TC; 85730-TC; 87040-TC; 87081-TC; 87086-TC; 94799-TC; A4216; A6253; A6402; A6403; G0378; J1815; J1940; J1956; J7050; Q0162